=== PATIENT | female | born 2000 | race Caucasian/White ===

== ENCOUNTER 2022-03-17 14:37 | Outpatient (CLI) | payer OTHER, SELFPAY | END 2022-03-17 14:38 | disposition home or self-care (01) | LOC: ANHSURGERY 14:42 | PROVIDERS: Visit Provider Obstetrics & Gynecology | DX: Z01.818 Encounter for other preprocedural examination (principal); R10.2 Pelvic and perineal pain | CPT/HCPCS: 36415; 86850; 86900; 86901 ==

== ENCOUNTER 2022-03-19 01:54 | Day surgery (SDC) | payer OTHER, SELFPAY ==
--- NOTE | 2022-03-16 07:45 | PM.IMHP ---
H&P: HPI History of Present Illness Date/Time: 03/16/22 07:45 Chief Complaint: Pelvic pain Narrative: This is a 21-year-old female 0 with severe pelvic pain. She has dyspareunia with negative STD testing. Hormonal manipulation has been unsuccessful. Risks and benefits of this procedure were reviewed including not exclusive of , aspiration pneumonia, bleeding, transfusion, perforation injury to bowel, bladder, ureters, or other internal organs with need for open laparotomy. She received the [employer] handout entitled laparoscopy. She had all questions answered. She asked to proceed Exam Const: General: cooperative, healthy appearing, comfortable, well groomed and average body habitus Orientation/consciousness: oriented to person, oriented to place and oriented to time Resp: Effort & Inspection: normal respiratory effort Cardio: Rate: regular rate Rhythm: regular rhythm Heart sounds: S1 normal heart sound present and S2 normal heart sound present GI: Inspection: normal to inspection : External Female Exam: normal external appearance Speculum Exam - Vagina: normal appearance of the vagina Speculum Exam - Cervix: normal appearance of the cervix Bimanual exam- vagina & uterus: uterine size normal Bimanual Exam- Adnexa, other: no masses and tender Assessment and Plan Assessment and plan (1) Pelvic pain: Code(s): R10.2 - Pelvic and perineal pain Status: Acute Plan Diagnostic laparoscopy
[2022-03-16 09:43] VITALS: BMI 19.1
--- NOTE | 2022-03-16 09:52 | PC.NURSE ---
Addendum entered by Araceli Tavera RN 03/17/22 10:31: corrected patient copy of instructions to read 1330 surgery time. Original Note: Report to the Outpatient Waiting Room, entrance under the green pavilion located off [facility], at time 1130 on date 03/19/22. Planned Procedure Time: 1130. Time changes happen often and if your time is changed the preop area will call you the afternoon before. - You and your visitor will be asked to self-screen and do not enter if you have any COVID symptoms. - We encourage only one visitor and NO visitors under age 16 are allowed at this time. Your visitor will receive communication by the phone number that is given day of service. - The patient visitor is requested to social distance or may leave the building when not with patient due to restrictions. - A mask is required within the hospital. Patients may have clear liquids (water, carbonated beverages, clear teas, apple juice) until 3 hours prior to surgery with a maximum of 20 ounces 1030. - No food from midnight until time of surgery - Infants may have breast milk until 4 hours before surgery, formula 6 hours prior to surgery. - Children will be allowed to drink immediately following surgery. If applicable, please bring a bottle or sippy cup to assist with drinking. Juice, water, soda, and popsicles are readily available. For infants on formula, please bring formula the day of surgery. Pacifiers are allowed. Take the following medications with a SIP of water the morning of surgery: zoloft Medications to discontinue per physician n/a Date to take last dose n/a Please no make-up, nail [place] citizen, hairspray, perfume, deodorant, or body powder the day of surgery. No jewelry (including any body piercings) or valuables the day of surgery, leave them at home. Please take a shower or bath the night before, or the morning of, surgery with an antibacterial soap. Wear comfortable, loose fitting clothing. Children are encouraged to wear pajamas. - Jewelry must be removed prior to entering the operating room. Rings and piercings that are not removed may be cut off. - The hospital will not accept responsibility for valuables. - Please leave all valuables, including medications, at home the day of surgery. If you are going home after surgery, a licensed electric train driver must drive you home. - NO public transportation without another adult. - We recommend that an adult stay with you for 24 hours following discharge. - We also recommend that you do not drive, make important decision, drink alcoholic beverages, or take any drugs that were not prescribed by your health care provider for at least 24 hours after your discharge time. For Pediatric surgeries, we recommend two adults accompany the child home. Follow any additional instructions given to you from your surgeon. If you or anyone in your household have experienced Covid symptoms in the past week, please notify your surgeon or the nurse liaison at the phone number below for possible testing. Telephone instructions given to Jessica Vyas and asked if any additional questions and then verbalized understanding. Patient advised to call surgeon office or pre surgery nurse liaison [phone] if any additional questions.
[2022-03-19] VITALS (7 sets, daily range): BP systolic 96–137; BP diastolic 61–81; PULSE 60–101; RESP 12–16; TEMP 36.3–37.1; O2SAT 99–100; BMI 19.2
--- NOTE | 2022-03-19 06:04 | WPDHPUPDATE1 ---
History and Physical Update Update Date/Time: 03/19/22 06:04 History and Physical has been reviewed, including an updated exam of the patient. There are NO changes in the patient's condition. Risks, benefits, and alternatives have been discussed and questions answered. Patient agrees to proceed with procedure.
[2022-03-19] MEDS: LACTATED RINGERS 1,000 ML 30 ML IV CONT (07:00)
--- NOTE | 2022-03-19 07:06 | P.PNAN_ITS ---
Anes - Initial Pre Proc Eval Procedure: Operation Date: 03/19/22 08:30 Proposed Procedures p Diagnostic Laparoscopy - Vitor Avery MD Date/Time: 03/19/22 07:06 Surgeon: Vitor Avery MD Pre Op Diagnosis: Pelvic Pain Patient Data Age: 21 Gender: F Height: 1.52 m Weight: 44.5 kg Allergies Allergy/AdvReac Type Severity Reaction Status Date / Time No Known Allergies Allergy Verified 03/19/22 06:41 Home Medications Medication Instructions Recorded Confirmed Type etonogestrel 68 mg subdermal 68 mg subdermal 03/16/22 History implant (Nexplanon) sertraline 25 mg tablet (Zoloft) 50 mg PO DAILY 03/16/22 03/16/22 History hydrocodone 5 mg-acetaminophen 325 1 tablet PO Q4H PRN pain #30 tabs 03/19/22 Rx mg tablet hydrocodone 5 mg-acetaminophen 325 1 tablet PO Q4H PRN pain #30 tabs 03/19/22 Rx mg tablet Patient hx anesthesia problems: none Family hx anesthesia problems: none Results Review: All pre-operative results and documents have been reviewed as part of the pre- operative evaluation. [facility] Past Medical History Medical History Anxiety Depression Social History Social History Smoking status: Never smoker Living arrangements: alone Spiritual care concerns: No Anes - Eval Final PreProcedure Day of Procedure 03/19/22 07:06 Patient weight: normal Heart: regular rate and rhythm Lungs: clear to auscultation Airway: Mallampati scale class II Neurological: alert and oriented Last oral intake: >/= 8 hours ASA classification: II Emergent: no Anesthetic plan: proceed Anesthesia type and monitoring: general ETT and standard monitoring Results Review: All pre-operative results and documents have been reviewed as part of the pre- operative evaluation. Informed Consent: The patient's anesthetic plan and its attendant risks and benefits were disc ussed with the patient/family/POA. Questions were solicited and answers provided to the satisfaction of the patient/family/POA.
[2022-03-19] MEDS: SCOPOLAMINE 1.5 MG PATCH TRANSDERM (07:12)
[2022-03-19] MEDS: ACETAMINOPHEN 500 MG TABLET 1000 MG PO (07:14)
[2022-03-19] MEDS: KETOROLAC 15 MG/ML VIAL (*BKC) IV PUSH (07:15)
--- NOTE | 2022-03-19 08:01 | P.OP_ITS ---
Procedure Note - Detailed Date of Procedure 03/19/22 Pre-op Diagnosis Pelvic Pain Post-op Diagnosis Other (Endometriosis and right ovarian cyst) Procedure Performed laparoscopic destruction of endometriosis and destruction of right ovarian cyst Surgeon Vitor Avery MD Anesthesia General Indications / 21-year-old female history severe pelvic Findings right ovary with benign-appearing follicular cyst. Small area blistered endometriosis along the right uterosacral ligament normal-appearing gallbladder normal-appearing liver. Normal-appearing appendix Description of Procedure the patient was prepped draped in the normal sterile fashion placed in the dorsal lithotomy position. Excellent general trach anesthesia weighted speculum placed posterior fornix vagina. Anterior lip of the cervix grasped with a single-tooth tenaculum in the Spring's cannula inserted the cervix and attached to the single-tooth to be used later for uterine manipulation. After emptying the bladder of clear urine, the weighted speculum was removed the gloves were changed. An infraumbilical incision made the Veress needle passed in the abdomen. Abdomen filled with CO2 gas to 15 of. 5Mm trocar advanced under direct visualization with the Optiview scope injury seen. Patient placed in Trendelenburg and a suprapubic incision made. The 5mm trocar advanced under direct visualization assuring injury. The above findings were seen in photo documentation undertaken. This well area blistered endometriosis on right uterosacral ligament was cauterized at 35 w per 2nd with monopolar cautery. Irrigation undertaken until clear the right ovary a follicular cyst and this was opened in linear fashion and drained of clear follicular fluid. Photo documentation was undertaken and the gallbladder appendix. No other a bnormalities were seen and the lower site. The gas removed from the. Upper site removed and the incisions closed with 4. The instruments removed from the vagina. All sponge, needle, instrument counts were correct. There were no complications blood loss estimated 5cc Estimated Blood Loss 5 Drains No Packing No Pathology None sent Complications No immediate complications Condition Stable Disposition PACU
[2022-03-19] MEDS: oxyCODONE HCL (*CRX) 5 MG TAB IR PO (09:14)
== END 2022-03-19 09:58 | disposition home or self-care (01) ==
PROVIDERS: Visit Provider Obstetrics & Gynecology
PROC: (CPT 49320; principal; 2022-03-19 08:30)
DX: N80.3C1 Endometriosis of the right uterosacral ligament, unspecified depth (principal); N83.01 Follicular cyst of right ovary; R10.2 Pelvic and perineal pain
CPT/HCPCS: 58662; 36415; 86850; 86900; 86901; A9270; J1100; J1885; J2250; J2405; J2704; J2710; J3010; J7030; J7120